=== PATIENT | female | born 1980 | race Two or more races ===

== ENCOUNTER 2018-06-01 16:33 | Emergency (ER) | payer OTHER ==
[~2018-06-01] VITALS: Ht 175.3 cm; Wt 55.3 kg
== END 2018-06-01 17:54 | disposition home or self-care (01) ==
LOC: ER 16:33
DX: R00.0 Tachycardia, unspecified (principal); F41.0 Panic disorder [episodic paroxysmal anxiety]

== ENCOUNTER 2023-05-31 15:06 | Outpatient (CLI) | payer OTHER | END 2023-05-31 15:09 | disposition home or self-care (01) | LOC: SONOGRAMA 15:06 | PROVIDERS: ATTEND Pathology Anatomic Pathology & Clinical Pathology | DX: D34 Benign neoplasm of thyroid gland (principal); E07.89 Other specified disorders of thyroid; E04.2 Nontoxic multinodular goiter ==